=== PATIENT | male | born 1975 | race Caucasian/White ===

== ENCOUNTER 2023-12-22 16:34 | Emergency (ER) | payer SELFPAY ==
[~2023-12-22] VITALS: Ht 170.2 cm; Wt 90.7 kg
[2023-12-22 16:37] VITALS: BP_SYST 141; PULSE 88; RESP 17; TEMP 96.9; O2SAT 99
[2023-12-22 17:22] VITALS: BP_SYST 141; PULSE 88; RESP 17; TEMP 96.9; O2SAT 99
== END 2023-12-22 17:00 ==
LOC: SED 16:34
DX: H11.31 Conjunctival hemorrhage, right eye (principal)
CPT/HCPCS: 99283